=== PATIENT | female | born 1955 | race American Indian/Alaskan Native ===

== ENCOUNTER 2019-09-25 12:28 | Outpatient (CLI) | payer OTHER ==
--- NOTE | 2019-09-25 14:00 | XRay Report ---
ABDOMEN 3 VIEW(S) INDICATION / CLINICAL INFORMATION: ACUTE ABDOMEN PAIN/LEFT LOWER QUADRANT PAIN. COMPARISON: None available. FINDINGS: TUBES / LINES: None. BOWEL GAS PATTERN: No significant abnormality. Old postoperative changes are seen in the abdomen. FREE AIR / EXTRALUMINAL GAS: None seen. ADDITIONAL FINDINGS: The chest x-ray portion is flipped. The lungs are clear and heart size is normal . IMPRESSION: 1. No significant abnormality. Signer Name: Jewel Duarte MD Signed: 09/25/2019 1:56 PM Workstation Name: [email or web address]
== END 2019-09-25 12:29 | disposition home or self-care (01) ==
LOC: SPVIMAG 12:28
PROVIDERS: ATTEND Student in an Organized Health Care Education/Training Program
DX: R19.7 Diarrhea, unspecified (principal); R10.32 Left lower quadrant pain; R63.4 Abnormal weight loss; E87.6 Hypokalemia
CPT/HCPCS: 74022